=== PATIENT | female | born 1975 | race Asian ===

== ENCOUNTER 2021-07-05 12:20 | Emergency (ER) | payer BC ==
[~2021-07-05] VITALS: Ht 149.9 cm; Wt 43.6 kg
[2021-07-05 13:44] VITALS: BP 153/93
== END 2021-07-05 14:40 | disposition home or self-care (01) ==
LOC: ER 12:21
DX: U07.1 COVID-19 (principal); M79.18 Myalgia, other site; R20.0 Anesthesia of skin; R10.10 Upper abdominal pain, unspecified; R05.9 Cough, unspecified; R43.8 Other disturbances of smell and taste
CPT/HCPCS: 71045; 99283